=== PATIENT | female | born 1950 | race Caucasian/White ===

== ENCOUNTER → 2018-12-16 | Outpatient (CLI) | payer BC ==
[~2018-12-16] MED LIST: ATOXIMETIN-B1 CAP PO; NORCO 325 MG-51 TAB PO; TOPROL XL 50MG50 MG PO; TOPROL XL50 MG PO
== END ==
LOC: COL.RAD 12-12 13:15
DX: M50.23 Other cervical disc displacement, cervicothoracic region (principal); M25.78 Osteophyte, vertebrae

== ENCOUNTER → 2019-01-21 | Outpatient (CLI) | payer BC | LOC: MC.RAD 07:25 | DX: Z12.31 Encounter for screening mammogram for malignant neoplasm of breast (principal); N64.89 Other specified disorders of breast ==

== ENCOUNTER → 2019-01-28 | Outpatient (CLI) | payer BC, MEDICARE | LOC: MC.RAD 14:21 | DX: N64.89 Other specified disorders of breast (principal) ==

== ENCOUNTER → 2021-02-14 | Outpatient (CLI) | payer BC ==
[2021-02-14 17:23] LABS: BASO # 0.1 (0.0-0.2); BASO % 0.3 % (0.0-2.0); EOS # 0.4 (0.0-0.7); EOS % 2.2 % (0-4.0); GRAN # 11.3 (1.4-6.5); GRAN % 69.6 % (42.2-75.2); HEMATOCRIT 41.2 % (37.0-47.0); HEMOGLOBIN 13.7 g/dl (12.5-16.0); LYMPH # 3.4 (1.2-3.4); LYMPH % 20.8 % (20.0-51.0); MEAN CELL VOLUME 90 fl (80.0-100.0); MEAN CORPUSCULAR HEMOGLOBIN 30 pg (27.0-31.0); MEAN CORPUSCULAR HGB CONC 33 g/dl (33.0-37.0); MEAN PLATELET VOLUME 9.2 fl (7.4-10.4); MONO # 1.1 (0.1-0.6); MONO % 6.7 % (1.7-9.3); PLATELET COUNT 341 K/mm3 (130-400); RED BLOOD COUNT 4.57 M/mm3 (4.10-5.30)
[2021-02-14 17:33] LABS: BILIRUBIN,TOTAL 1.2 mg/dL (0.0-1.0); CREATININE, serum 0.63 (0.52-1.25); POTASSIUM 3.3 mmol/L (3.4-5.0); TOTAL PROTEIN 8.3 gm/dL (6.4-8.2)
== END ==
LOC: COL.RAD 16:00
PROVIDERS: Internal Medicine
DX: D35.02 Benign neoplasm of left adrenal gland (principal); K86.89 Other specified diseases of pancreas; K76.89 Other specified diseases of liver; R10.84 Generalized abdominal pain; R11.0 Nausea; Z96.89 Presence of other specified functional implants